=== PATIENT | female | born 1980 | race Native Hawaiian/Other Pacific Islander ===

== ENCOUNTER 2017-12-18 16:59 | Emergency (ER) | payer BC ==
[~2017-12-18] VITALS: Ht 167.6 cm; Wt 136.1 kg
[2017-12-18] MEDS ORDERED: BENZONATATE100 MG PO (17:03)
[2017-12-18] MEDS ORDERED: ESTRACE2 MG PO (17:03)
[2017-12-18] MEDS ORDERED: MECLIZINE 2525 MG PO (17:04)
[2017-12-18] MEDS ORDERED: Z-PAK PO (17:05)
[2017-12-18 17:36] LABS: PLATELET COUNT 222 K/uL (152-353)
[2017-12-18 17:55] LABS: POTASSIUM 3.5 mmol/L (3.6-5.2)
[2017-12-18 18:25] VITALS: BP 153/91; TEMP 98.8
== END 2017-12-18 18:25 | disposition home or self-care (01) ==
LOC: ED 16:59
DX: J11.1 Influenza due to unidentified influenza virus with other respiratory manifestations (principal); R09.1 Pleurisy
CPT/HCPCS: 36415; 80048; 80053; 85027; 87081; 87804; 87880; 96374; 99284; J1885

== ENCOUNTER 2022-08-10 09:21 | Emergency (ER) | payer OTHER ==
[~2022-08-10] VITALS: Ht 167.6 cm; Wt 136.1 kg
[~2022-08-10 09:21] MED LIST: BENZONATATE100 MG PO; ESTRACE2 MG PO; MECLIZINE 2525 MG PO; Z-PAK PO
[2022-08-10 09:25] VITALS: BP 156/77; TEMP 96.4
== END 2022-08-10 10:45 | disposition left against medical advice (07) ==
LOC: ED 09:21
DX: Z53.21 Procedure and treatment not carried out due to patient leaving prior to being seen by health care provider (principal)
CPT/HCPCS: 99281

== ENCOUNTER 2023-02-02 08:11 | Outpatient (CLI) | payer OTHER | END 2023-02-02 19:40 | disposition home or self-care (01) | LOC: MAMMO 08:11 | PROVIDERS: ATTEND Nurse Practitioner Family | DX: Z12.31 Encounter for screening mammogram for malignant neoplasm of breast (principal) ==

== ENCOUNTER 2023-02-12 13:58 | Outpatient (CLI) | payer OTHER | END 2023-02-12 21:24 | disposition home or self-care (01) | LOC: MAMMO 13:58 | PROVIDERS: ATTEND Nurse Practitioner Family | DX: R92.2 Inconclusive mammogram (principal) ==